=== PATIENT | female | born 1975 | race Caucasian/White ===

== ENCOUNTER 2022-05-31 07:45 | Outpatient (CLI) | payer OTHER, SELFPAY ==
--- NOTE | 2022-05-31 08:00 | CRLHL7_ITS ---
For Patients: As a result of the Century Cures Act, medical imaging exams and procedure reports are released immediately into your electronic medical record. You may view this report before your referring provider. If you have questions, please contact your health care provider. Indication: CHRONIC SINUSITIS Technique: Performed without IV contrast Comparison: None available Findings: Frontal sinuses: Clear. Ethmoid sinuses: Minimal mucosal thickening bilaterally. Maxillary sinuses: Mucosal thickening located within the inferior maxillary sinuses. 1.7 cm mucous retention cyst inferior right maxillary sinus. The maxillary sinus drainage pathways are patent on both sides. Sphenoid sinuses: Mild mucosal thickening at the anterior right sphenoid sinus with partial obstruction of the sphenoidal ethmoidal recess. Clear left sphenoid sinus with patent sphenoethmoidal recess. Nasal Cavity: Mild leftward curvature of the anterior nasal septum. Leny bullosa right middle turbinate. No nasal polyps. Prior surgery noted. No TMJ abnormalities identified. The visualized portions of the orbits, intracranial contents and upper soft tissue neck are grossly negative. Impression: 1. Mild bilateral maxillary sinus disease. 2. Mild right sphenoid sinus disease. Trace bilateral ethmoid sinus disease. Please note that all CT scans at this facility use dose modulation, iterative reconstruction, and/or weight-based dosing when appropriate to reduce radiation dose to as low as reasonably achievable. Dictated by Basim Santos MD @ 05/31/2022 9:21:17 AM (Electronically Signed)
== END 2022-05-31 07:46 | disposition home or self-care (01) ==
LOC: CT 07:46
PROVIDERS: Visit Provider Otolaryngology
DX: J32.9 Chronic sinusitis, unspecified (principal); J32.0 Chronic maxillary sinusitis; J32.3 Chronic sphenoidal sinusitis
CPT/HCPCS: 70486

== ENCOUNTER 2022-06-19 19:40 | Outpatient (CLI) | payer OTHER, SELFPAY ==
--- NOTE | 2022-06-21 14:46 | P.SLS_ITS ---
Sleep Study Details Details Interpreting Provider: Nathan Dubois MD Date of Sleep Study: 06/19/22 Sleep Study Details: STUDY TYPE:? Home ? BMI:? 34.7 ORDERING PROVIDER:? Mary INDICATION:? Concerns about sleep apnea ? SLEEP SUMMARY:? 481.5 monitored minutes RESPIRATORY SUMMARY:? AHI 24.8, supine 32.7, left lateral 23.4, right lateral 18.5 Low oxygen 84 1.1% of study oxygen less than 90% Snoring 31.1% PERIODIC LIMB MOVEMENTS OF SLEEP:? Not recorded CARDIAC:? 53-96, mean 66.8 IMPRESSION:? Moderate obstructive sleep apnea with some supine position dependen cy RECOMMENDATION: Treatment options would include CPAP AutoSet 4-17 versus dental appliance. CPAP would be favored
== END 2022-06-19 19:41 | disposition home or self-care (01) ==
LOC: SLEEP 19:40
PROVIDERS: Visit Provider Otolaryngology
DX: G47.33 Obstructive sleep apnea (adult) (pediatric) (principal)
CPT/HCPCS: 95806

== ENCOUNTER 2022-10-20 07:38 | Day surgery (SDC) | payer OTHER, SELFPAY ==
[2022-10-20] VITALS (30 sets, daily range): BP systolic 109–150; BP diastolic 67–104; PULSE 59–94; RESP 16–18; TEMP 36.3–37; O2SAT 91–100; BMI 35.0
[2022-10-20] MEDS: LACTATED RINGERS 1000 ML 1,000 ML 100 ML IV (07:20)
[2022-10-20] MEDS: OXYMETAZOLINE 0.05% NASAL SPRAY 2 SPRAY NOSTRIL-B (08:06)
[2022-10-20] MEDS: SODIUM CHLORIDE 0.9 % (FLUSH) 10 ML SYRINGE IVF (08:09)
[2022-10-20 08:14] LABS: HCG Qualitative* Negative (Negative)
--- NOTE | 2022-10-20 08:40 | W.ANESCHARGE ---
Anesthesia Charges Start Date/Time Anesthesia Start Date: 10/20/22 Anesthesia Start Time: 09:04 Stop Date/Time Anesthesia Stop Date: 10/20/22 Anesthesia Stop Time: 09:51
[2022-10-20 08:49] LABS: SARS PCR* Negative SARS-CoV-2 (Negative)
[2022-10-20] MEDS: BUPIVACAINE 0.5%/EPINEPHRINE 0.9 MG (30.9 ML) INJECTION (09:05)
[2022-10-20] MEDS: COCAINE HCL 4 % 4 ML SOLUTION NOSTRIL-B (09:20)
[2022-10-20] MEDS: MUPIROCIN 1 GM PACKET 1 APPLIC TOPICAL (09:20)
[2022-10-20] MEDS: AYR SALINE NASAL GEL 1 APPLIC NOSTRIL-B (09:22)
[2022-10-20] MEDS: BUPIVACAINE 0.5 %/EPI 1:200K 30 ML INJECTION (09:54)
--- NOTE | 2022-10-20 09:58 | W.ANESCHARGE ---
Anesthesia Charges Start Date/Time Anesthesia Start Date: 10/20/22 Anesthesia Start Time: 09:04 Stop Date/Time Anesthesia Stop Date: 10/20/22 Anesthesia Stop Time: 09:51
--- NOTE | 2022-10-20 10:07 | W.PM.ENTPROC ---
Procedure Note Date of procedure: 10/20/22 Procedure: Preoperative diagnosis deviated septum nasal obstruction middle turbinate antonette bullosa bilateral, nasal headache Postoperative diagnosis same Procedure nasal septoplasty, endoscopic partial resection bilateral middle turbinate antonette bullosa Under general endotracheal anesthesia patient was prepped and draped in usual fashion. The nose was decongested with cocaine pledgets and injected. A right hemitransfixion incision was made left anterior and posterior tunnels were created. A vertical incision was made through the cartilage and a right posterior tunnel created. Posterior deflected portions of septal bone were resected. A large piece was trimmed returned the posterior intraseptal space and the hemitransfixion closed with 2 4-0 chromic sutures. The inferior turbinates were outfractured. Remainder procedure was done with the available assistance of a 0 degree endoscope. The right middle turbinate antonette was incised along its lateral aspect. This incision was made with a 15 blade. A Nguyen dissector was used to elevate mucosa and the antonette bone infractured and weakened. Then a Waqar forceps was used to crush the middle turbinate. This was repeated on the left side in identical fashion. Silastic stents were secured on either side the septum with a single 3-0 nylon. Merocel pack was trimmed lengthwise, coated in Bactroban and placed beneath the middle turbinates on each side. The patient was extubated in the operating room taken recovery in satisfactory condition. Blood loss during procedure less than 25 mL. Surgeon: Nathan Dubois MD
[2022-10-20] MEDS: IBUPROFEN 200 MG TABLET PO ×4 (10:45→23:08)
[2022-10-20] MEDS: ACETAMINOPHEN 325 MG TABLET PO ×4 (10:45→23:08)
--- NOTE | 2022-10-20 23:24 | PC.NURSE ---
Shift [id number]- Patient states pain is controlled with PRN ibuprofen and tylenol. Gauze under nose remains clean and dry. She is tolerating regular diet. Voiding very well and drinking a lot of water. She is up independently. Oxygen saturations while awake are mid-high 90s%.
[2022-10-21] MEDS: IBUPROFEN 200 MG TABLET PO ×2 (02:54→08:21)
[2022-10-21] MEDS: ACETAMINOPHEN 325 MG TABLET PO ×2 (02:55→08:21)
[2022-10-21 03:00] VITALS: BP 143/86; PULSE 792; RESP 18; TEMP 36.4; O2SAT 98
--- NOTE | 2022-10-21 05:52 | PC.NURSE ---
Shift note: Pt has been having difficulty breathing through the nose. Dressing was soaked with a mixture of blood and mucoid nasal discharge and was changed 1x tonight. Mild pain of 3 was rated. 2L of oxygen through oxymask was given for NURY. Pt has a shower tonight which she described has been helpful keeping her sleeping.
[2022-10-21 07:00] VITALS: BP 148/93; PULSE 84; RESP 18; TEMP 36.3; O2SAT 97
[2022-10-21 08:37] VITALS: BP 143/86; PULSE 792; RESP 18; TEMP 36.4
[2022-10-21 09:53] VITALS: BP 163/78; PULSE 84; RESP 18
--- NOTE | 2022-10-21 09:55 | PC.NURSE ---
Nursing Care Hours: [id number] Pt this shift calm and cooperative. Rating pain 4/10, treated per eMAR. Scant amount of drainage on gauze. New gauze applied. Dry crusted blood around nares. Bilat nasal congestion, pt c/o ears feeling clogged. Reviewed expected outcomes and care instructions for home with pt. Advised no blowing of nose until approved at f/u, use saline flush and cotton swab to clean nares of debris. No tray ordered. Tolerating fluids PO. VSS. IV removed for discharge. Reviewed discharge packet with pt and spouse. Pt ambulated off the unit in stable condition.
== END 2022-10-21 09:15 | disposition home or self-care (01) ==
LOC: OR 07:40 → MEDSURG 08:09
PROVIDERS: Anesthesiology; Visit Provider Otolaryngology
PROC: (CPT 31231; principal; 2022-10-20 08:45)
DX: J34.2 Deviated nasal septum (principal); J34.3 Hypertrophy of nasal turbinates; R51.9 Headache, unspecified
CPT/HCPCS: 30520; 31240; 00160; 84703; 87635; A9270; J0330; J1100; J2250; J2405; J2704; J3010; J3490; J7120